=== PATIENT | male | born 2000 | race Caucasian/White ===

== ENCOUNTER 2023-03-17 01:03 | Emergency (ER) | payer SELFPAY ==
[2023-03-17] VITALS (13 sets, daily range): BP systolic 88–137; BP diastolic 40–79; PULSE 67–107; RESP 11–22; TEMP 36.6–37; O2SAT 97–100; BMI 24.4
--- NOTE | 2023-03-17 00:46 | XR_ITS ---
PROCEDURE INFORMATION: Exam: XR Chest Exam date and time: 03/17/2023 1:06 AM Age: 22 years old Clinical indication: Other: Vomiting; Additional info: Cp, vomiting TECHNIQUE: Imaging protocol: Radiologic exam of the chest. Views: 1 view. COMPARISON: No relevant prior studies available. FINDINGS: Study quality is limited due to incomplete inclusion of the inferior right costophrenic angle. Lungs: Lung volumes are mildly diminished. The lungs appear clear. No focal areas of consolidation. Pleural spaces: No pleural effusions. Negative for pneumothorax. Heart/Mediastinum: Cardiac silhouette and pulmonary vasculature are within range of normal. Bones/joints: There is no evidence of acute fracture. IMPRESSION: Negative for an acute cardiopulmonary abnormality.
--- NOTE | 2023-03-17 00:53 | HMH.EDGENADL ---
Discharge Plan Disposition Patient Disposition: Home, Self-Care Condition: Good Referrals Follow up/Referrals: Provider,Referral, [Primary Care Provider] - See instructions Activity Restrictions/Add. Instructions Additional Instructions/Restrictions: You were evaluated in the emergency department today. Please refrain from drug use. Follow-up with your primary care provider. Return to the emergency department for new or worsening symptoms. Clinical Impressions Clinical Impression: Polysubstance abuse, Anxiety Instructions Patient Instructions: DI for Drug Overdose in Adults Discharge ED Provider: [facility] Adult HPI General Chief complaint: Overdose Stated complaint: Overdose Time Seen by Provider: 03/17/23 01:16 History of Present Illness HPI narrative: This patient is a 22-year-old male who denies significant past medical history presented to the emergency department for evaluation with concern for chest pain, palpitations, shortness of breath, anxiety, nausea, and vomiting after snorting meth and smoking THC wax. He has never combined the 2 before, and he states that he has never felt like this in the past. He has been vomiting profusely since EMS got to him. No other concerns noted at this time. He is well prior to this. He denies any history of IV drug use. Related Data Allergies Allergy/AdvReac Type Severity Reaction Status Date / Time No Known Allergies Allergy Verified 03/17/23 01:01 [facility] Disclaimer: The information contained in this section may have been updated after the patient was seen, as this information can be updated by other users. Social History Smoking Status: Current every day smoker alcohol intake: current current occupational status: unemployed Travel in the last 8 weeks: None ROS Obtained: Yes All systems reviewed & no additional complaints except as documented 14 point review of systems obtained and negative except as mentioned in HPI. Physical Exam General General appearance: alert Comment: Anxious appearing, jittery. Slightly agitated. Vomiting and retching. Head Head exam: atraumatic and normocephalic Eye Eye exam: Present normal appearance, PERRL and EOMI ENT ENT exam: Present normal exam, normal oropharynx and mucous membranes moist Neck Neck exam: Present normal inspection and full ROM Chest Chest inspection: Present normal inspection and symmetric chest wall rise Respiratory Respiratory exam: Present normal lung sounds bilaterally; Absent respiratory distress or wheezes Cardiovascular Cardiovascular exam: Present normal rhythm and tachycardia Abdominal Exam Abdominal exam: Present soft; Absent distention, tenderness or guarding Extremities Exam Extremities exam: Present normal inspection and full ROM; Absent tenderness Back Exam Back exam: Present normal inspection and full ROM Neurological Exam Neurological exam: Present alert, oriented X3 and CN II-XII intact; Absent motor sensory deficit Psychiatric Psychiatric exam: Present normal affect and normal mood Skin Skin exam: Present warm and dry Medical Decision Making Medical Records Medical records reviewed: Yes I reviewed the patient's medical records. Humble Inquiry Pt receiving controlled substance: No Vital Signs: 03/17/23 01:03 03/17/23 01:00 03/17/23 01:30 Temperature 98.6 F Temperature Source Oral Pulse Rate 86 Pulse Rate [Apical] 107 H Respiratory Rate 22 15 11 L Blood Pressure 120/79 137/72 Blood Pressure [Right Arm] 120/79 Blood Pressure Mean Blood Pressure Mean [Right Arm] 92 Blood Pressure Source Blood Pressure Source [Right Arm] Automatic Cuff Blood Pressure Position Blood Pressure Position [Right Arm] Sitting 02 Sat by Pulse Oximetry 99 98 99 Oxygen Delivery Method Room Air Room Air Room Air 03/17/23 02:00 03/17/23 02:30 03/17/23 03:00 Temperature Temperature
--- NOTE | 2023-03-17 00:57 | ECG_ITS ---
APPROVED REPORT Exam: Resting ECG HR:87 bpm ECG Measurements Heart Rate 87 AXES NE 142 P 51 QRSd 98 QRS 84 QT 390 T 76 QTc 434 Conclusion SINUS RHYTHM MINIMAL VOLTAGE CRITERIA FOR LVH, CONSIDER NORMAL VARIANT [MEETS CRITERIA IN ONE OF: R(aVL), S(V1), R(V5), R(V5/V6)+S(V1)] BORDERLINE ECG UNCONFIRMED REPORT Electronically signed by : Jose F Dow MD 03/18/2023 15:56:32
[2023-03-17 00:59] LABS: Basophils % 0.4 % (0.1-2.0); Eosinophils # 0.1 K/mm3 (0.0-0.4); Eosinophils % 1.2 % (0.1-12.0); Lymphocytes # 2.7 K/mm3 (0.7-4.5); Lymphocytes % 36.3 % (10-50); Mean Corpuscular HGB Conc 33.3 g/dL (31.8-35.4); Mean Corpuscular Hemoglobin 29.3 pg (27.0-31.2); Mean Corpuscular Volume 87.8 fl (80-94); Mean Platelet Volume 7.7 fl (7.4-10.4); Monocytes # 0.4 K/mm3 (0.1-1.0); Monocytes % 5.8 % (1.7-9.3); Neutrophils # 4.2 K/mm3 (1.8-7.8); Neutrophils % 56.4 % (37.0-80.0); Platelet Count 222 K/mm3 (142-424); Red Blood Count 4.78 M/mm3 (4.60-6.20); Red Cell Distribution Width 13.3 % (11.5-17.5); White Blood Count 7.4 K/mm3 (4.8-10.8)
[2023-03-17 01:03] LABS: Chloride 97 mmol/L (98-107); Potassium 3.2 mmoL/L (3.5-5.1); Sodium 136 mmol/L (136-145)
[2023-03-17 01:06] LABS: Alanine Aminotransferase 35 U/L (12-78); Albumin Level 4.6 g/dl (3.5-5.0); Albumin/Globulin Ratio 1.7 (1.1-1.8); Alkaline Phosphatase 98 U/L (38-126); Anion Gap 21.2 mEq/L (5-15); Aspartate Amino Transferase 37 U/L (17-59); Bilirubin,Total 1.3 mg/dl (0.2-1.3); Blood Urea Nitrogen 17 mg/dl (9-20); Carbon Dioxide 21 mmol/L (22.0-30.0); Estimated Glomerular Filt Rate 107 ml/min (>60); GFR (African American) 129 ML/MIN (>60); Globulin 2.7 g/dL (1.3-3.2); Glucose 221 mg/dl (74-100); Total Protein,Serum 7.3 g/dl (6.3-8.2)
[2023-03-17 01:07] LABS: Calcium 9.3 mg/dl (8.4-10.2)
[2023-03-17 01:20] LABS: Troponin I < 0.01 ng/ml (0.00-0.034)
== END 2023-03-17 06:27 | disposition home or self-care (01) ==
PROVIDERS: Emergency Provider Emergency Medicine
DX: R07.9 Chest pain, unspecified (principal); R06.02 Shortness of breath; F15.90 Other stimulant use, unspecified, uncomplicated; F17.200 Nicotine dependence, unspecified, uncomplicated
CPT/HCPCS: 71045; 80053; 84484; 85025; 93005; 96361; 96374; 96375; 99285